=== PATIENT | female | born 1985 | race Caucasian/White ===

== ENCOUNTER 2017-02-01 15:44 | Outpatient (CLI) | payer OTHER ==
[~2017-02-01] VITALS: Ht 157.5 cm; Wt 72.7 kg
[~2017-02-01 15:44] MED LIST: IBUP800T PO; OXYC-302 PO; PREN1TAB52 PO
[2017-02-01] MEDS ORDERED: LACTATED RINGERS 1,000 ML IVBOLUS ONE ×2 (16:00→17:00)
[2017-02-01] MEDS ORDERED: ONDANSETRON 2MG/ML, 2ML IVPush ONE (16:00)
[2017-02-01] MEDS ORDERED: ONDANSETRON 2MG/ML, 2ML ONE (16:40)
[2017-02-01 17:22] VITALS: BP 119/69
[2017-02-01] MEDS ORDERED: PLEASE ENTER PATIENTS WEIGHT MC SCH (18:00)
[2017-02-01] MEDS ORDERED: D5%-LACTATED RINGERS 1,000 ML IV SCH (19:00)
[2017-02-01] MEDS ORDERED: ONDANSETRON 2MG/ML, 2ML IVPush PRN (19:00)
== END 2017-02-01 20:50 | disposition home or self-care (01) ==
LOC: LDOP 15:44
PROVIDERS: ATTEND Obstetrics & Gynecology Female Pelvic Medicine and Reconstructive Surgery
DX: O26.892 Other specified pregnancy related conditions, second trimester (principal); O21.9 Vomiting of pregnancy, unspecified; R10.9 Unspecified abdominal pain; R19.7 Diarrhea, unspecified; Z3A.25 25 weeks gestation of pregnancy
CPT/HCPCS: 59025; 81001; 87086; 87324; 96360; 96361; 96375; 99211; J2405; J7120; G0463; J7121

== ENCOUNTER 2017-05-09 10:10 | Inpatient (IN) | payer OTHER ==
[~2017-05-09] VITALS: Ht 157.5 cm; Wt 79.5 kg
[~2017-05-09 10:10] MED LIST changes: +IBUP-1223 PO; -IBUP800T PO
[2017-05-09] MEDS ORDERED: OXYTOCIN 30U/ 0.9% NaCL 500ML 500 ML IV SCH (10:49)
[2017-05-09] MEDS ORDERED: LACTATED RINGERS 1,000 ML IV SCH ×2 (10:49→11:00)
[2017-05-09] MEDS ORDERED: LACTATED RINGERS 1,000 ML IVBOLUS ONE (11:00)
[2017-05-09] MEDS ORDERED: METOCLOPRAMIDE 5 MG/ML, 2ML IV ONE (11:00)
[2017-05-09] MEDS ORDERED: SODIUM CITRATE/CITRIC ACID 30 ML UDC PO ONE (11:00)
[2017-05-09] MEDS ORDERED: PLEASE ENTER HEIGHT AND WEIGHT MC SCH (11:30)
[2017-05-09 11:34] LABS: HEMATOCRIT 36.9 % (34.6-47.8); HEMOGLOBIN 12.5 g/dL (11.7-16.4); WHITE BLOOD COUNT 7.7 x10^3/uL (3.4-10)
[2017-05-09] MEDS ORDERED: OXYTOCIN 30U/ 0.9% NaCL 500ML 500 ML ONE (12:00)
[2017-05-09] MEDS ORDERED: METOCLOPRAMIDE 5 MG/ML, 2ML ONE ×2 (12:00→12:32)
[2017-05-09] MEDS ORDERED: SODIUM CITRATE/CITRIC ACID 30 ML UDC ONE ×2 (12:00→12:32)
[2017-05-09] MEDS: OXYTOCIN 30U/ 0.9% NaCL 500ML 500 ML IV SCH ×2 (12:27→22:27)
[2017-05-09] MEDS: LACTATED RINGERS 1,000 ML IV SCH ×4 (12:27→22:27)
[2017-05-09] MEDS ORDERED: MISOPROSTOL 200 MCG TABLET PR PRN (12:30)
[2017-05-09] MEDS ORDERED: ONDANSETRON 2MG/ML, 2ML IV PRN (12:30)
[2017-05-09] MEDS ORDERED: HYDROcodone/APAP 5/325 TABLET PO PRN (12:30)
[2017-05-09] MEDS ORDERED: ACETAMINOPHEN 325 MG TABLET PO PRN (12:30)
[2017-05-09] MEDS ORDERED: DOCUSATE 100 MG CAPSULE PO PRN (12:30)
[2017-05-09] MEDS ORDERED: BISACODYL 10 MG SUPP PR PRN (12:30)
[2017-05-09] MEDS ORDERED: MEPERIDINE/PF 25MG/0.5ML IM PRN (12:30)
[2017-05-09] MEDS ORDERED: KETOROLAC 30 MG/1 ML IV PRN (12:30)
[2017-05-09] MEDS ORDERED: METOCLOPRAMIDE 5 MG/ML, 2ML IV PRN (12:30)
[2017-05-09] MEDS ORDERED: CEFAZOLIN 1,000 MG ONE (12:32)
[2017-05-09] MEDS ORDERED: LIDOCAINE 1%, 20ML ONE (12:32)
[2017-05-09] MEDS ORDERED: OXYTOCIN 10 UNITS/ML, 1ML ONE (12:32)
[2017-05-09] MEDS ORDERED: EPHEDRINE 50 MG/ML, 1ML ONE (12:32)
[2017-05-09] MEDS ORDERED: NEWBORN KIT ONE (12:42)
[2017-05-09] MEDS: KETOROLAC 30 MG/1 ML IV SCH ×2 (13:45→19:43)
[2017-05-09] MEDS ORDERED: MORPHINE SULFATE 4 MG/ML, 1ML ONE (14:19)
[2017-05-09 15:45] VITALS: BP 107/64
[2017-05-09] MEDS: OXYcodone/APAP 5/325MG TABLET PO PRN (16:48)
[2017-05-09] MEDS: MEPERIDINE/PF 50 MG/ML IM PRN (18:41)
[2017-05-09 19:30] VITALS: BP 110/51
[2017-05-10 00:47] VITALS: BP 100/58
[2017-05-10] MEDS: KETOROLAC 30 MG/1 ML IV SCH ×3 (01:40→13:44)
[2017-05-10 03:51] VITALS: BP 109/58
[2017-05-10] MEDS: LACTATED RINGERS 1,000 ML IV SCH ×2 (04:27→08:27)
[2017-05-10] MEDS: MEPERIDINE/PF 50 MG/ML IM PRN (05:09)
[2017-05-10 06:55] VITALS: BP 104/66
[2017-05-10] MEDS: OXYcodone/APAP 5/325MG TABLET PO PRN ×4 (07:46→23:19)
[2017-05-10] MEDS: OXYTOCIN 30U/ 0.9% NaCL 500ML 500 ML IV SCH (08:27)
[2017-05-10] MEDS: PRENATAL VIT/IRON/FA 1 EACH TABLET PO SCH (09:00)
[2017-05-10 11:45] VITALS: BP 104/58
[2017-05-10] MEDS: SIMETHICONE 80 MG CHEW TAB PO PRN ×2 (12:09→23:15)
[2017-05-10] MEDS: IBUPROFEN 600 MG TABLET PO PRN (19:50)
[2017-05-10 20:00] VITALS: BP 101/66
[2017-05-11] MEDS: SIMETHICONE 80 MG CHEW TAB PO PRN ×2 (03:59→12:41)
[2017-05-11] MEDS: IBUPROFEN 600 MG TABLET PO PRN ×2 (03:59→12:41)
[2017-05-11] MEDS: OXYcodone/APAP 5/325MG TABLET PO PRN ×2 (04:07→10:19)
[2017-05-11 06:50] VITALS: BP 103/65
[2017-05-11] MEDS: PRENATAL VIT/IRON/FA 1 EACH TABLET PO SCH (07:55)
[2017-05-11] MEDS ORDERED: IBUP-1222 PO (12:23)
[2017-05-11] MEDS ORDERED: OXYC-302 PO (12:24)
== END 2017-05-11 14:10 | disposition home or self-care (01) | DRG 766 ==
LOC: UNDOADMIN 10:10 → EDIP 10:10 → LDIP 10:10 → 2NW 15:37
PROVIDERS: ADMIT Obstetrics & Gynecology Female Pelvic Medicine and Reconstructive Surgery; ATTEND Obstetrics & Gynecology Female Pelvic Medicine and Reconstructive Surgery
PROC: 10D00Z1 Extraction of Products of Conception, Low, Open Approach (ICD-10-PCS; principal; 2017-05-09)
DX: O34.211 Maternal care for low transverse scar from previous cesarean delivery (principal); Z88.0 Allergy status to penicillin; Z37.0 Single live birth; Z3A.39 39 weeks gestation of pregnancy
CPT/HCPCS: 36415; 85025; 86850; 86900; J0690; J1885; J2175; J3490; J2590; J2765; J7120